=== PATIENT | female | born 1990 | race Caucasian/White ===

== ENCOUNTER 2017-05-21 11:46 | Emergency (ER) | payer OTHER ==
[~2017-05-21] VITALS: Ht 157.5 cm; Wt 69.1 kg
[2017-05-21 11:47] VITALS: TEMP 36.7; Ht 157.5 cm; Wt 69.1 kg
[2017-05-21] MEDS ORDERED: SODIUM CHLORIDE 0.9% 1000ML 1,000 ML IV STA (13:06)
[2017-05-21] MEDS ORDERED: ONDANSETRON INJ 2 MG/ML 2 ML VIAL IV STA (13:06)
[2017-05-21 13:49] LABS: BASO % 0.2 %; BASO ABS # 0.01 K/uL (0-0.2); COMPLETE YES; EOS % 1.2 %; HEMATOCRIT 43.2 % (37-47); IG% 0.2 %; LYMPH ABS # 2.31 K/uL (1.2-3.4); MEAN CELL VOLUME 89.1 fL (80-100); MEAN CORPUSCULAR HEMOGLOBIN 29.7 pg (25-34); MEAN CORPUSCULAR HGB CONC 33.3 g/dl (32-36); MEAN PLATELET VOLUME 11.1 fL (7.4-10.4); MONO % 7.8 %; NEUT % 51.6 %; PLATELET COUNT 174 K/uL (130-400); RED BLOOD COUNT 4.85 M/uL (4.2-5.4); WHITE BLOOD COUNT 5.93 K/uL (4.8-10.8)
[2017-05-21 13:52] LABS: URINE APPEARANCE CLEAR (CLEAR); URINE BILIRUBIN NEG (NEG); URINE COLOR YELLOW; URINE NITRITE NEG (NEG); URINE PH 5.5 (4.5-7.5); URINE SPECIFIC GRAVITY 1.022 (1.000-1.030); UROBILINOGEN NEG (NEG)
[2017-05-21 13:58] LABS: MANUAL MICROSCOPIC REQUIRED? NO; REVIEW REQ? NO
[2017-05-21 14:08] LABS: BUN/CREATININE RATIO 10.2 (10-20); CALCIUM 8.9 mg/dl (8.5-10.1); CREATININE 0.81 mg/dl (0.60-1.20); POTASSIUM 3.7 mmol/L (3.5-5.1)
--- NOTE | 2017-05-21 14:58 | DIAGNOSTIC IMAGING REPORT ---
ABDOMEN 2VIEW W/PA CHEST RTN CLINICAL HISTORY: eval for obstruction pain COMPARISON STUDY: No previous studies for comparison. FINDINGS: The soft tissues, psoas shadows, renal outlines and intestinal gas pattern appear normal. There is no evidence for bowel obstruction. There is no evidence for free intraperitoneal air. No abnormal abdominal calcifications are seen. A frontal view of the chest was performed and is unremarkable. Prior stabilization procedure of the thoracolumbar spine IMPRESSION: No acute process Electronically signed by: Vega Faust M.D. 05/21/2017 2:57 PM Dictated Date/Time: 05/21/2017 2:55 PM
[2017-05-21 15:31] VITALS: BP 114/66; PULSE 66; O2SAT 99
--- NOTE | 2017-05-21 17:46 | EMERGENCY ROOM VISIT NOTE ---
History Report prepared by Tia: Tomeka Bagley Under the Supervision of: Dr. Sachin Mac M.D. First contact with patient: 12:54 Chief Complaint: ABDOMINAL PAIN Stated Complaint: SEVERE ABDOMINAL PAIN, DIARRHEA, THROWING UP History of Present Illness The patient is a 26 year old female who presents to the Emergency Room with complaints of worsening abdominal pain since January 2016. The patient reports that she has had vomiting and diarrhea since she had a cholecystectomy in January. She states that she has had this abdominal pain before the surgery, so her pain has lasted for over 2 years. The patient was told that the cholecystectomy would resolve her symptoms but her pain has been worsening ever since. Her pain is in her central abdomen and is described as sharp and crampy. She rates the pain at a 9/10 after she eats. She reports that as soon as she eats or drinks anything she needs to vomit, but that the pain usually goes away within an hour. The patient also reports that she gets hot and feels like she is going to pass out. She denies having any bloody or black stool and urinary symptoms. She went to the ED in [place] several months ago and was told she had GERD. She had a CT scan done at that time. Last year she was seen in this ED and had blood work and a CT scan done which was normal. She has not seen a GI doctor and has not changed her diet. She reports trying Bharti- [place] and Omeprazole for her symptoms but neither have helped. Source of History: patient Onset: January 2016 Position: abdomen Quality: cramping, other (tight) Timing: worsening Modifying Factors (Worsening): eating Associated Symptoms: + vomiting, + diarrhea, No melena, No hematochezia, No urinary symptoms Review of Systems See HPI for pertinent positives & negatives. A total of 10 systems reviewed and were otherwise negative. Past Medical & Surgical Medical Problems: (1) Asthma (2) Biliary colic (3) Bronchitis (4) Pneumonia (5) Urinary problem Family History FH: cancer FH: diabetes mellitus Hypertension Kidney disease Kidney stones Social History Smoking Status: Current Every Day Smoker Alcohol Use: occasionally Marital Status: Housing Status: lives with family Occupation Status: employed Current/Historical Medications No Active Prescriptions or Reported Meds Allergies Uncoded Allergies: LIQUID MOTRIN (Allergy, Mild, as a child, 01/27/16) Physical Exam Vital Signs Date Time Temp Pulse Resp B/P (MAP) Pulse Ox O2 Delivery O2 Flow Rate FiO2 05/21/17 15:31 66 15 114/66 99 05/21/17 13:42 67 18 109/70 98 Room Air 05/21/17 11:47 36.7 91 16 131/75 98 Room Air Physical Exam Constitutional: Vital signs reviewed. Eyes: Pupils are equal round reactive to light. Conjunctiva are noninjected. ENT: Pharynx is clear without erythema or exudate. Mucous membranes are dry. Neck supple without meningeal signs. Respiratory: Clear to auscultation bilaterally. Breath sounds are equal bilaterally. Cardiovascular: Regular rate and rhythm. No rubs or gallops. GI: Minimal epigastric tenderness. No guarding. Bowel sounds are present. Musculoskeletal: No peripheral edema. No lower extremity tenderness. Integumentary: No cyanosis. Neurological: The patient is awake and alert. No focal deficits. Psychiatric: Normal affect. Medical Decision & Procedures ER Provider Diagnostic Interpretation: X-ray results as stated below per interpretation by me and the radiologist: ABDOMEN 2VIEW W/PA CHEST RTN CLINICAL HISTORY: eval for obstruction pain COMPARISON STUDY: No previous studies for comparison. FINDINGS: The soft tissues, psoas shadows, renal outlines and intestinal gas pattern appear normal. There is no evidence for bowel obstruction. There is no evidence for free intraperitoneal air. No abnormal abdominal calcifications are seen. A frontal view of the chest was performed and is unremarkable. Prior stabilization procedure of the thoracolumbar spine IMPRESSION: No acute process Electronically signed by: Vega Faust M.D. 05/21/2017 2:57 PM Dictated Date/Time: 05/21/2017 2:55 PM Laboratory Results 05/21/17 13:23 Red Blood Count 4.85, Mean Corpuscular Volume 89.1, Mean Corpuscular Hemoglobin 29.7, Mean Corpuscular Hemoglobin Concent 33.3, Mean Platelet Volume 11.1, Neutrophils (%) (Auto) 51.6, Lymphocytes (%) (Auto) 39.0, Monocytes (%) (Auto) 7.8, Eosinophils (%) (Auto) 1.2, Basophils (%) (Auto) 0.2, Neutrophils # (Auto) 3.07, Lymphocytes # (Auto) 2.31, Monocytes # (Auto) 0.46, Eosinophils # (Auto) 0.07, Basophils # (Auto) 0.01 05/21/17 13:23 Test 05/21/17 13:23 White Blood Count 5.93 K/uL (4.8-10.8) Red Blood Count 4.85 M/uL (4.2-5.4) Hemoglobin 14.4 g/dL (12.0-16.0) Hematocrit 43.2 % (37-47) Mean Corpuscular Volume 89.1 fL (80-100) Mean Corpuscular Hemoglobin 29.7 pg (25-34) Mean Corpuscular Hemoglobin Concent 33.3 g/dl (32-36) Platelet Count 174 K/uL (130-400) Mean Platelet Volume 11.1 fL (7.4-10.4) Neutrophils (%) (Auto) 51.6 % Lymphocytes (%) (Auto) 39.0 % Monocytes (%) (Auto) 7.8 % Eosinophils (%) (Auto) 1.2 % Basophils (%) (Auto) 0.2 % Neutrophils # (Auto) 3.07 K/uL (1.4-6.5) Lymphocytes # (Auto) 2.31 K/uL (1.2-3.4) Monocytes # (Auto) 0.46 K/uL (0.11-0.59) Eosinophils # (Auto) 0.07 K/uL (0-0.5) Basophils # (Auto) 0.01 K/uL (0-0.2) RDW Standard Deviation 42.3 fL (36.4-46.3) RDW Coefficient of Variation 13.0 % (11.5-14.5) Immature Granulocyte % (Auto) 0.2 % Immature Granulocyte # (Auto) 0.01 K/uL (0.00-0.02) Urine Color YELLOW Urine Appearance CLEAR (CLEAR) Urine pH 5.5 (4.5-7.5) Urine Specific [place] 1.022 (1.000-1.030) Urine Protein NEG (NEG) Urine Glucose (UA) NEG (NEG) Urine Ketones NEG (NEG) Urine Occult Blood NEG (NEG) Urine Nitrite NEG (NEG) Urine Bilirubin NEG (NEG) Urine Urobilinogen NEG (NEG) Urine Leukocyte Esterase NEG (NEG) Urine Test NEG (NEG) Anion Gap 7.0 mmol/L (3-11) Est Creatinine Clear Calc Drug Dose 97.6 ml/min Estimated GFR () 117.8 Estimated GFR (Non- 101.7 BUN/Creatinine Ratio 10.2 (10-20) Calcium Level 8.9 mg/dl (8.5-10.1) Total Bilirubin 0.6 mg/dl (0.2-1) Direct Bilirubin 0.1 mg/dl (0-0.2) Aspartate Amino Transf (AST/SGOT) 9 U/L (15-37) Alanine Aminotransferase (ALT/SGPT) 19 U/L (12-78) Alkaline Phosphatase 52 U/L (45-117) Total Protein 7.6 gm/dl (6.4-8.2) Albumin 3.7 gm/dl (3.4-5.0) Lipase 119 U/L (73-393) Laboratory results as reviewed by me. Medications Administered Medications (Trade) Dose Ordered Sig/Ed Route Start Time Stop Time Status Last Admin Dose Admin Ondansetron HCl (Zofran Inj) 4 mg NOW STAT IV 05/21/17 13:06 05/21/17 13:07 DC 05/21/17 13:27 4 MG Sodium Chloride 1,000 ml @ 999 mls/hr Q1H1M STAT IV 05/21/17 13:06 05/21/17 14:06 DC 05/21/17 13:26 999 MLS/HR ED Course 1257: The patient was evaluated in room A11. A complete history and physical exam was performed. 1306: Ordered Sodium Chloride 1,000 ml @ 999 mls/hr IV, Ondansetron HCl 4 mg IV. 1515: I talked with the patient about her results and she will follow up with a GI specialist. 1520: Upon reevaluation, the patient appeared to have improvement of her symptoms. I discussed tonight's findings with her. She verbalized agreement of the treatment plan. She was discharged home. Medical Decision This is a 26-year-old female who presents with abdominal pain, vomiting and diarrhea. Differential diagnosis includes dehydration, inflammatory bowel disease, irritable bowel syndrome, gastroparesis, choledocholithiasis, pancreatitis. I did perform a limited focused review of portions of the patient 's old chart on the electronic medical record. The patient was seen here for diarrhea and abdominal pain in June [address] of belly which showed no acute process. Blood Pressure Screening: Patient was found to have a slightly elevated blood pressure due to circumstances. I do not believe that the patient requires hypertension monitoring. Medication Reconciliation: I attest that I have personally reviewed the patient' s current medication list. I did evaluate the patient as noted above. The patient has had abdominal pain with vomiting and diarrhea for over 2 years. She is presenting with the same symptoms. She has never seen a forest economics professor or had any significant workup other than ultrasound gallbladder and CT of the abdomen and pelvis. On examination she has some minimal epigastric tenderness and appears slightly dehydrated but is otherwise well-appearing. I did treat patient with Zofran IV and normal saline IV. IV access was established. I did order and personally review the patient's abdominal and chest x-rays as described above. There is no evidence of obstruction or acute abnormality. Urine analysis is unremarkable. She is not . I did order and review the patient's blood work as noted in the electronic medical record. LFTs and lipase are unremarkable. White blood cell count is not elevated. I did reassess the patient. She is feeling somewhat better. I did discuss the test results with the patient. I did recommend she follow up with her doctor as well as Dr. Mota of gastroenterology for further evaluation. She will likely need further workup including possible gastric emptying studying and/or EGD or colonoscopy. The patient was discharged in good condition. Impression Primary Impression: Dehydration Additional Impressions: Chronic bilateral upper abdominal pain Vomiting and diarrhea Scribe Attestation The scribe's documentation has been prepared under my direct and personally reviewed by me in its entirety. I confirm that the note above accurately reflects all work, treatment, procedures, and medical decision making performed by me. Departure Information Dispostion Home / Self-Care Prescriptions No Active Prescriptions or Reported Meds Referrals Yola Messina (PCP) Cielo Mota M.D. Forms HOME CARE DOCUMENTATION FORM, IMPORTANT VISIT INFORMATION, Work Instructions Patient Instructions Abdominal Pain - [facility], Dehydration, My [facility] Additional Instructions You have been examined and treated today on an emergency basis only. This is not a substitute for, or an effort to provide, complete comprehensive medical care. It is impossible to recognize and treat all injuries or illnesses in a single emergency department visit. It is therefore important that you follow up closely with your physician and a forest economics professor such as Dr. Mota. Call as soon as possible for an appointment. He will likely need further testing such as a possible gastric emptying study and/or EGD. Return for worsening symptoms or if you develop fever, black or tarry stools or any other concerning symptoms. Problem Qualifiers
== END 2017-05-21 15:32 | disposition home or self-care (01) ==
LOC: C.EDB 11:47 → C.EDA 15:32
DX: E86.0 Dehydration (principal); R10.11 Right upper quadrant pain; R10.12 Left upper quadrant pain; R11.10 Vomiting, unspecified; R19.7 Diarrhea, unspecified; K21.9 Gastro-esophageal reflux disease without esophagitis; J45.909 Unspecified asthma, uncomplicated; F17.200 Nicotine dependence, unspecified, uncomplicated; Z87.19 Personal history of other diseases of the digestive system; Z88.6 Allergy status to analgesic agent; Z80.9 Family history of malignant neoplasm, unspecified; Z83.3 Family history of diabetes mellitus; Z82.49 Family history of ischemic heart disease and other diseases of the circulatory system; Z84.1 Family history of disorders of kidney and ureter